=== PATIENT | male | born 1975 | race Two or more races ===

== ENCOUNTER 2021-02-10 14:05 | Inpatient (IN) | payer OTHER ==
[~2021-02-10] VITALS: Ht 167.6 cm; Wt 106.0 kg
[2021-02-10 14:43] LABS: BASOPHILS % (AUTO) 1 % (0-1); EOSINOPHILS % (AUTO) 0 % (1-7); LYMPHOCYTES % (AUTO) 30 % (22-44); MEAN CORPUSCULAR HGB CONC 35.2 g/dL (33.2-36.2); MEAN PLATELET VOLUME 7.4 fL (7.4-10.4); MONOCYTES % (AUTO) 9 % (2-9); NEUTROPHILS % (AUTO) 59 % (42-75); PLATELET COUNT 264 x10^3/uL (130-400); RED CELL DISTRIBUTION WIDTH 14.2 % (9.4-14.8)
[2021-02-10 14:45] LABS: MD NO
--- NOTE | 2021-02-10 14:45 | NUR ---
Report from meal break [facility], received that pt is in room, chief complaint, and awaiting MD assessment/orders. Care assumed.
[2021-02-10 14:53] LABS: ALANINE AMINOTRANSFERASE 57 U/L (12-78); ALBUMIN 3.9 g/dL (3.4-5.0); ANION GAP 9 mmol/L (5-15); CALCIUM 8.3 mg/dL (8.5-10.1); CHLORIDE 103 mmol/L (98-107); CREATININE 0.94 mg/dL (0.7-1.3)
[2021-02-10 14:56] LABS: ALKALINE PHOSPHATASE 82 U/L (45-117); BILIRUBIN,TOTAL 1.5 mg/dL (0.2-1.0); TOTAL PROTEIN 7.7 g/dL (6.4-8.2)
--- NOTE | 2021-02-10 14:57 | NUR ---
MD at bedside for exam now.
[2021-02-10] MEDS ORDERED: THIAMINE 100 MG/ML, 2ML ONE (15:08)
[2021-02-10] MEDS ORDERED: ONDANSETRON 2MG/ML, 2ML ONE (15:09)
[2021-02-10] MEDS ORDERED: LORazepam 2 MG/ML, 1ML ONE (15:09)
[2021-02-10] MEDS ORDERED: ONDANSETRON 2MG/ML, 2ML IVPush ONE (15:30)
[2021-02-10] MEDS ORDERED: SODIUM CHLORIDE 0.9% 1,000ML IVBOLUS ONE (15:30)
[2021-02-10] MEDS ORDERED: SODIUM CHLORIDE FLUSH 10ML SYR IVF ONE (15:30)
[2021-02-10] MEDS ORDERED: LORazepam 2 MG/ML, 1ML IVPush PRN (15:30)
[2021-02-10] MEDS ORDERED: THIAMINE 100 MG/ML, 2ML IM ONE (15:30)
--- NOTE | 2021-02-10 15:30 | NUR ---
IV started, NS bolus up, IV and IM meds given as ordered. Pt placed on bedside monitor and found hypoxic, so placed on O2 at 2L/min NC and will titrate up to keep SpO2 94-99%. Call light in reach, at bedside, urinal at bedside. Pt attempted urine sample prior to IV start without success. Will try again after NS bolus has infused. Awaiting CT.
--- NOTE | 2021-02-10 15:51 | NUR ---
Pt taken to CT via gurney by [facility].
[2021-02-10 15:54] LABS: ACETONE, SERUM Negative (Negative)
[2021-02-10] MEDS ORDERED: OMNIPAQUE 350 MG/ML, 100ML BOTTLE ONE (15:55)
--- NOTE | 2021-02-10 16:56 | NUR ---
Pt's tremors have decreased and state he feels quite a bit better. Pt aware of wait for room assignment for admission and reminded of need for UA sample when able. at bedside and call light in reach.
[2021-02-10] MEDS ORDERED: ENALAPRILAT 1.25 MG/ML, 2ML IVPush PRN (17:00)
[2021-02-10] MEDS ORDERED: ACETAMINOPHEN 325 MG TABLET PO PRN (17:00)
[2021-02-10] MEDS: ENOXAPARIN 40 MG/0.4 ML SQ SCH (17:00)
[2021-02-10] MEDS ORDERED: ONDANSETRON 2MG/ML, 2ML IVPush PRN (17:00)
[2021-02-10] MEDS ORDERED: ONDANSETRON ODT 4 MG PO PRN (17:00)
--- NOTE | 2021-02-10 17:23 | NUR ---
Report given to ROMERO Onofre and pt readied for transport to floor.
[2021-02-10] MEDS ORDERED: FAMO-79 PO (17:25)
[2021-02-10] MEDS ORDERED: LORazepam 2 MG/ML, 1ML IV PRN ×4 (18:00)
[2021-02-10] MEDS ORDERED: LORazepam 1MG TABLET PO PRN ×4 (18:00)
[2021-02-10] MEDS ORDERED: LORazepam 0.5MG TABLET PO PRN (18:00)
--- NOTE | 2021-02-10 18:00 | NUR ---
Pt atken up by neelima with wildlife biology technician. Noted. Urine 800mL dark yellow uop but no stickers to be able to send for UA sample now. ROMERO Onofre on floor was aware of need UA sample upon his arrival to floor from report prior to now.
[2021-02-10] MEDS: POTASSIUM CHLORIDE 20 MEQ, MAGNESIUM SULFATE 2 GM, THIAMINE 200 MG, MVI ADULT 10 ML, FO... IV SCH (19:55)
[2021-02-10 20:01] VITALS: BP 161/99
[2021-02-10] MEDS: LORazepam 2 MG/ML, 1ML IV PRN (20:22)
[2021-02-10] MEDS ORDERED: MELATONIN 5 MG TABLET PO PRN (21:00)
[2021-02-10] MEDS: LACTULOSE 10 GM/15 ML UDC PO SCH (21:00)
[2021-02-10 23:53] LABS: AMPHETAMINE SCREEN, URINE Negative (Negative); BARBITURATE SCREEN, URINE Negative (Negative); BENZODIAZEPINE SCREEN, URINE Negative (Negative); CANNABINOID SCREEN, URINE Positive (Negative); COCAINE SCREEN, URINE Negative (Negative); METHADONE SCREEN, URINE Negative (Negative); OPIATE SCREEN, URINE Negative (Negative)
[2021-02-11] VITALS (7 sets, daily range): BP systolic 156–188; BP diastolic 87–126
[2021-02-11] MEDS: LORazepam 2 MG/ML, 1ML IV PRN (02:39)
[2021-02-11 06:17] LABS: BASOPHILS % (AUTO) 1 % (0-1); EOSINOPHILS % (AUTO) 1 % (1-7); LYMPHOCYTES % (AUTO) 32 % (22-44); MEAN CORPUSCULAR HEMOGLOBIN 29.5 pg (27.5-34.5); MEAN CORPUSCULAR HGB CONC 33.9 g/dL (33.2-36.2); MEAN PLATELET VOLUME 7.3 fL (7.4-10.4); MONOCYTES % (AUTO) 8 % (2-9); NEUTROPHILS % (AUTO) 59 % (42-75); PLATELET COUNT 227 x10^3/uL (130-400); RED BLOOD COUNT 4.82 x10^6/uL (4.38-5.82); RED CELL DISTRIBUTION WIDTH 13.8 % (9.4-14.8)
[2021-02-11 06:19] LABS: MD NO
[2021-02-11 06:29] LABS: ALANINE AMINOTRANSFERASE 49 U/L (12-78); ALBUMIN 3.4 g/dL (3.4-5.0); ANION GAP 9 mmol/L (5-15); CALCIUM 7.6 mg/dL (8.5-10.1); CHLORIDE 108 mmol/L (98-107)
[2021-02-11 06:32] LABS: ALKALINE PHOSPHATASE 71 U/L (45-117); BILIRUBIN,TOTAL 1.5 mg/dL (0.2-1.0); CREATININE 1.03 mg/dL (0.7-1.3); TOTAL PROTEIN 6.9 g/dL (6.4-8.2)
[2021-02-11] MEDS: DIAZEPAM 10 MG TABLET PO SCH ×4 (08:31→23:56)
[2021-02-11] MEDS: LACTULOSE 10 GM/15 ML UDC PO SCH ×2 (08:31→21:00)
[2021-02-11] MEDS: LOSARTAN 50MG TABLET PO SCH (11:17)
[2021-02-11 18:06] LABS: CLOSTRIDIUM DIFFICILE ANTIGEN NEGATIVE; CLOSTRIDIUM DIFFICILE TOXIN NEGATIVE (Negative)
[2021-02-11] MEDS: ENOXAPARIN 40 MG/0.4 ML SQ SCH (18:12)
[2021-02-11] MEDS: POTASSIUM CHLORIDE 20 MEQ, MAGNESIUM SULFATE 2 GM, THIAMINE 200 MG, MVI ADULT 10 ML, FO... IV SCH (18:23)
[2021-02-12] MEDS: SIMETHICONE 125 MG CHEW TAB PO PRN ×2 (01:40→17:28)
[2021-02-12 02:00] VITALS: BP 158/82
[2021-02-12 05:42] LABS: BASOPHILS % (AUTO) 1 % (0-1); EOSINOPHILS % (AUTO) 2 % (1-7); LYMPHOCYTES % (AUTO) 35 % (22-44); MEAN CORPUSCULAR HEMOGLOBIN 30.5 pg (27.5-34.5); MEAN CORPUSCULAR HGB CONC 34.6 g/dL (33.2-36.2); MEAN PLATELET VOLUME 7.4 fL (7.4-10.4); MONOCYTES % (AUTO) 10 % (2-9); NEUTROPHILS % (AUTO) 52 % (42-75); PLATELET COUNT 181 x10^3/uL (130-400); RED BLOOD COUNT 4.42 x10^6/uL (4.38-5.82); RED CELL DISTRIBUTION WIDTH 13.7 % (9.4-14.8)
[2021-02-12 05:43] LABS: MD NO
[2021-02-12 06:01] LABS: CHLORIDE 107 mmol/L (98-107)
[2021-02-12 06:14] LABS: ALANINE AMINOTRANSFERASE 39 U/L (12-78); ALKALINE PHOSPHATASE 94 U/L (45-117); ANION GAP 8 mmol/L (5-15); BILIRUBIN,TOTAL 1.7 mg/dL (0.2-1.0); CALCIUM 7.6 mg/dL (8.5-10.1); CREATININE 0.91 mg/dL (0.7-1.3); TOTAL PROTEIN 6.4 g/dL (6.4-8.2)
[2021-02-12 06:28] VITALS: BP 148/87
[2021-02-12] MEDS: DIAZEPAM 5 MG TABLET PO SCH ×3 (07:41→18:08)
[2021-02-12] MEDS: LACTULOSE 10 GM/15 ML UDC PO SCH ×2 (10:26→21:54)
[2021-02-12] MEDS: LOSARTAN 50MG TABLET PO SCH (10:27)
[2021-02-12 12:31] VITALS: BP 164/96
[2021-02-12] MEDS ORDERED: POTASSIUM CHLORIDE 20 MEQ, MAGNESIUM SULFATE 2 GM, THIAMINE 200 MG, FOLIC ACID 1 MG in ... IV SCH (16:29)
[2021-02-12] MEDS: ENOXAPARIN 40 MG/0.4 ML SQ SCH (17:00)
[2021-02-12 18:39] VITALS: BP 135/90
[2021-02-13] MEDS: DIAZEPAM 5 MG TABLET PO SCH ×2 (01:15→07:56)
[2021-02-13 02:17] VITALS: BP 150/89
[2021-02-13 07:49] VITALS: BP 152/98
[2021-02-13] MEDS ORDERED: DIAZ5TAB4 PO ×3 (07:55→13:42)
[2021-02-13] MEDS: LACTULOSE 10 GM/15 ML UDC PO SCH (07:55)
[2021-02-13] MEDS ORDERED: LOSA50TA2 PO (07:55)
[2021-02-13] MEDS: LOSARTAN 50MG TABLET PO SCH (07:56)
[2021-02-13] MEDS ORDERED: MULTIVITAMIN 1 TABLET PO SCH (09:00)
== END 2021-02-13 11:30 | disposition home or self-care (01) | DRG 605 ==
LOC: ED 14:48 → EDIP 16:45 → 4EST 18:07 → DCLOUNGE 02-13 11:20
PROVIDERS: ADMIT Hospitalist; ATTEND Family Medicine
DX: S20.219A Contusion of unspecified front wall of thorax, initial encounter (principal); F10.239 Alcohol dependence with withdrawal, unspecified; E87.1 Hypo-osmolality and hyponatremia; F10.229 Alcohol dependence with intoxication, unspecified; I10 Essential (primary) hypertension; K40.20 Bilateral inguinal hernia, without obstruction or gangrene, not specified as recurrent; K57.90 Diverticulosis of intestine, part unspecified, without perforation or abscess without bleeding; E78.5 Hyperlipidemia, unspecified; K76.0 Fatty (change of) liver, not elsewhere classified; W18.39XA Other fall on same level, initial encounter; Y93.89 Activity, other specified; Y92.89 Other specified places as the place of occurrence of the external cause; Y99.8 Other external cause status; Z71.41 Alcohol abuse counseling and surveillance of alcoholic
CPT/HCPCS: 36415; 71046; 74177; 80053; 80307; 80320; 82010; 83605; 83690; 83735; 84100; 85025; 87324; 93005; 96372; 96374; G0378; J1650; J2405; J3411; J3475; J3480; J7042; Q9967; G0480; J2060; J7030

== ENCOUNTER 2021-04-21 01:03 | Emergency (ER) | payer SELFPAY ==
[~2021-04-21] VITALS: Ht 167.6 cm; Wt 100.0 kg
[~2021-04-21 01:03] MED LIST: DIAZ5TAB4 PO; FAMO-79 PO; LOSA50TA2 PO
[2021-04-21] MEDS ORDERED: ONDANSETRON 2MG/ML, 2ML IVPush ONE (02:00)
[2021-04-21] MEDS ORDERED: SODIUM CHLORIDE 0.9% 1,000ML IVBOLUS ONE (02:00)
[2021-04-21] MEDS ORDERED: LORazepam 2 MG/ML, 1ML IVPush ONE (02:00)
--- NOTE | 2021-04-21 02:06 | NUR ---
PT ARRIVED TO ER INTOXICATED, PT SMELLS OF ALCOHOL, PT STATED, "CAN YOU HELP ME? I NEED TO SLEEP. I DONT SLEEP FOR 2 WEEKS". PT WENT ON TO SAY THAT HE HASNT BEEN ABLE TO SLEEP SINCE HE WAS A CHILD. PTS AT BEDSIDE. PT IS VERY TENSE AND TREMULOUS.
[2021-04-21] MEDS ORDERED: ONDANSETRON 2MG/ML, 2ML ONE (02:10)
[2021-04-21 02:11] LABS: BASOPHILS % (AUTO) 1 % (0-1); EOSINOPHILS % (AUTO) 1 % (1-7); LYMPHOCYTES % (AUTO) 36 % (22-44); MEAN CORPUSCULAR HEMOGLOBIN 30.3 pg (27.5-34.5); MEAN CORPUSCULAR HGB CONC 34.2 g/dL (33.2-36.2); MEAN PLATELET VOLUME 7.5 fL (7.4-10.4); MONOCYTES % (AUTO) 9 % (2-9); NEUTROPHILS % (AUTO) 53 % (42-75); PLATELET COUNT 292 x10^3/uL (130-400); RED BLOOD COUNT 4.79 x10^6/uL (4.38-5.82); RED CELL DISTRIBUTION WIDTH 14.4 % (9.4-14.8)
[2021-04-21] MEDS ORDERED: LORazepam 2 MG/ML, 1ML ONE (02:11)
[2021-04-21 02:12] LABS: MD NO
[2021-04-21 02:22] LABS: ALBUMIN 3.9 g/dL (3.4-5.0); ANION GAP 14 mmol/L (5-15); CALCIUM 8.6 mg/dL (8.5-10.1); CHLORIDE 107 mmol/L (98-107)
[2021-04-21 02:25] LABS: ALANINE AMINOTRANSFERASE 70 U/L (12-78); ALKALINE PHOSPHATASE 88 U/L (45-117); BILIRUBIN,TOTAL 0.6 mg/dL (0.2-1.0); CREATININE 0.91 mg/dL (0.7-1.3); TOTAL PROTEIN 7.9 g/dL (6.4-8.2)
--- NOTE | 2021-04-21 03:01 | NUR ---
THIS RN ADMINISTERED MEDICATIONS AND FLUIDS, PT NO LONGER TREMULOUS, AT BEDSIDE, PT STATES HE FEELS BETTER WELL
[2021-04-21 03:12] VITALS: BP 128/67
--- NOTE | 2021-04-21 03:13 | NUR ---
PT SLEEPING IN BED, PT HAS PERIODS OF APNEA THAT CAUSES OXYGEN LEVEL TO DROP, THIS RN STARTED PATIENT ON 3 LPM NASAL CANULA, OTHER VITALS STABLE, ALL NEEDS IN REACH, CALL LIGHT IN REACH, NAD
--- NOTE | 2021-04-21 03:40 | NUR ---
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 PT V/U OF INSTRUCTIONS AND PLAN OF CARE. AND PT GIVEN F/U AND D/C INSTRUCTIONS WITH PRESCRIPTION AND PT AND HIS V/U. PTS PIV D/C'D WITHOUT INCIDENT AND CATH TIP INTACT. PT ABLE TO STAND AND IS STEADY AND STABLE IN WALKING. PT D/C'D WITHOUT INCIDENT.
== END 2021-04-21 04:07 ==
LOC: ED 03:43
DX: F10.120 Alcohol abuse with intoxication, uncomplicated (principal); F41.1 Generalized anxiety disorder; G31.2 Degeneration of nervous system due to alcohol; I10 Essential (primary) hypertension; Y90.0 Blood alcohol level of less than 20 mg/100 ml
CPT/HCPCS: 36415; 80053; 80320; 83690; 85025; 96361; 96374; 96375; 99284; J2060; J2405; J7030; G0480